=== PATIENT | male | born 1980 | race Caucasian/White ===

== ENCOUNTER 2018-07-19 21:41 | Emergency (ER) | payer MEDICAID ==
--- NOTE | 2018-07-19 22:11 | EDM.PDOC ---
ED HPI GENERAL MEDICAL PROBLEM - General Chief Complaint: Upper Extremity Injury/Pain Stated Complaint: BROKE FINGER Time Seen by Provider: 07/19/18 21:55 Source of Information: Reports: Patient History Limitations: Reports: No Limitations - History of Present Illness INITIAL COMMENTS - FREE TEXT/NARRATIVE: 38-year-old male with injury to his right hand. He was loading some musical equipment, tripped, and his right hand got caught in the equipment as he was falling hyperextending his right small and ring fingers. There is bruising and swelling and he heard a "crack". No significant numbness. No other injury. Onset: Sudden Duration: Hour(s): (Within the last 2 hours) Location: Reports: Upper Extremity, Right Associated Symptoms: Reports: No Other Symptoms right hand Pain Score (Numeric/FACES): 8 - Related Data Allergies Allergy/AdvReac Type Severity Reaction Status Date / Time No Known Allergies Allergy Verified 07/19/18 21:55 Home Meds: Home Meds NK [No Known Home Meds] 07/19/18 [History] Past Medical History Musculoskeletal History: Reports: Fracture Neurological History: Reports: Concussion - Infectious Disease History Infectious Disease History: Reports: Chicken Pox - Past Surgical History GI Surgical History: Reports: Appendectomy Social & Family History - Tobacco Use Smoking Status *Q: Current Every Day Smoker Years of Tobacco use: 15 Packs/Tins Daily: 0.5 - Caffeine Use Caffeine Use: Reports: None - Recreational Drug Use Recreational Drug Use: No Review of Systems - Review of Systems Review Of Systems: See Below Constitutional: Denies: Fever Respiratory: Reports: No Symptoms Cardiovascular: Reports: No Symptoms GI/Abdominal: Reports: No Symptoms Skin: Reports: Bruising Neurological: Denies: Paresthesia Psychiatric: Reports: No Symptoms ED EXAM, GENERAL - Physical Exam Exam: See Below Exam Limited By: No Limitations General Appearance: Alert, No Apparent Distress (Patient is uncomfortable but not distressed) Respiratory/Chest: No Respiratory Distress, Lungs Clear Cardiovascular: Regular Rate, Rhythm Extremities: Other (Exam is otherwise limited to the right hand. The wrist is nontender and uninjured. He has ecchymosis and slight swelling on the palmar surface of the MP joint of the fifth finger, with swelling and ecchymosis around the PIP joint as well. Distal CS is intact) Neurological: Alert, Oriented Course - Vital Signs Last Recorded V/S: Last Vital Signs Temp 99.0 F 07/19/18 21:57 Pulse 99 07/19/18 21:57 Resp 16 07/19/18 21:57 BP 141/85 H 07/19/18 21:57 Pulse Ox 95 07/19/18 21:57 - Orders/Labs/Meds Orders: Active Orders 24 hr Category Date Time Status Hand Comp Min 3V Rt [CR] Stat Exams 07/19/18 22:04 Taken - Re-Assessments/Exams Free Text/Narrative Re-Assessment/Exam: 07/19/18 22:11 An x-ray of the right hand was obtained. 07/19/18 22:31 X-ray confirms several fracture lines in the proximal phalanx of the small finger, joint spaces are spared. There is minimal displacement. An ulnar gutter splint was placed on the hand, and he'll recheck with orthopedics in the next 48 hours. Departure - Departure Time of Disposition: 22:38 Disposition: Home, Self-Care 01 Condition: Good Clinical Impression: Proximal phalanx fracture of finger Qualifiers: Encounter type: initial encounter Finger: little finger Fracture type: closed Fracture alignment: nondisplaced Laterality: right Qualified Code(s): S62.646A - Nondisplaced fracture of proximal phalanx of right little finger, initial encounter for closed fracture - Discharge Information Instructions: Finger Fracture, [id number] Referrals: PCP,None [Primary Care Provider] - Forms: ED Department Discharge Care Plan Goals: Leave splint on until rechecked by orthopedics at the clinic on or Tuesday. Ibuprofen may help with discomfort. - My Orders Last 24 Hours: My Active Orders 07/19/18 22:04 Hand Comp Min 3V Rt [CR] Stat - Assessment/Plan Last 24 Hours: My Active Orders 07/19/18 22:04 Hand Comp Min 3V Rt [CR] Stat
--- NOTE | 2018-07-20 08:41 | CR ---
Hand Comp Min 3V Rt CLINICAL HISTORY: Trauma FINDINGS: There is a comminuted nondisplaced fracture of the fifth proximal phalanx. There is some na rrowing of the interphalangeal joints. Impression: Comminuted nondisplaced fracture of the fifth proximal phalanx
== END 2018-07-19 22:38 | disposition home or self-care (01) ==
LOC: JP.ED 21:41
DX: S62.646A Nondisplaced fracture of proximal phalanx of right little finger, initial encounter for closed fracture (principal); F17.210 Nicotine dependence, cigarettes, uncomplicated; W01.198A Fall on same level from slipping, tripping and stumbling with subsequent striking against other object, initial encounter
CPT/HCPCS: 29125; 73130-26-RT; 73130-RT; 99282-25; 99284-25